=== PATIENT | female | born 1980 | race Caucasian/White ===

== ENCOUNTER 2017-10-02 20:27 | Inpatient (IN) | payer OTHER ==
[~2017-10-02] VITALS: Ht 157.5 cm; Wt 101.2 kg
[~2017-10-02 20:27] MED LIST: AMITRIPTYLINE H25 M2 PO; AMOXIL 875 MG875 M1 PO; FLOMAX0.4 MG PO; HYDROCODONE-AP1 EAC6 PO; LEVSIN0.125 MG SUBLING; OMEPRAZOLE40 MG PO; PHENTERMINE HCL15 MG PO; PREDNISONE 20 M20 MG PO; PROTONIX40 M1 PO; REGLAN 10 MG TA10 MG PO; SINGULAIR 10 MG10 M1 PO; TOPAMAX 100 MG100 MG PO; TORADOL 10 MG T10 MG PO; TRAMADOL 50 MG50 MG PO; TYLENOL EXTRA500 MG PO; TYLENOL PM EX-1 EACH PO
[2017-10-02 20:39] VITALS: BP 174/117
[2017-10-02] MEDS ORDERED: CLARITIN10 MG (20:47)
[2017-10-02] MEDS ORDERED: LOVASTATIN 20 M20 MG (20:47)
[2017-10-02 21:01] LABS: HEMATOCRIT 41.1 % (37.0-47.0); HEMOGLOBIN 13.9 gm/dL (12.0-15.0); MCH 29.1 pg (26.0-34.0); MCHC 33.8 g/dL (28.0-37.0); MCV 86.1 fL (80.0-100.0); RBC 4.77 mil/uL (4.20-5.00); RDW-CV 13.9 % (10.5-14.5); WBC 11.2 thou/uL (4.0-11.0)
[2017-10-02 21:09] LABS: CALCIUM 9.6 mg/dL (8.5-10.1); CREATININE 0.9 mg/dL (0.6-1.3); POTASSIUM 3.2 mmol/L (3.5-5.1)
[2017-10-02 21:14] LABS: ALBUMIN 4.1 g/dL (3.4-5.0); MAGNESIUM 1.9 mg/dL (1.8-2.4); PHOSPHORUS* 4.2 mg/dL (2.5-4.9); TOTAL BILIRUBIN 0.3 mg/dL (<0.1-1.0); TOTAL PROTEIN 7.8 g/dL (6.4-8.2)
[2017-10-02 21:21] LABS: ACETAMINOPHEN 3 ug/mL (10-30); ALCOHOL < 10 mg/dL (<10); SALICYLATE < 2.8 mg/dL (2.8-20.0)
[2017-10-02 21:22] LABS: PCO2 38.5 mmHg (35.0-45.0); PO2 70.5 mmHg (75.0-100.0); pH 7.447 (7.340-7.450)
[2017-10-02 22:30] LABS: AMP/METHAMP Negative (Negative); BARBITURATES Negative (Negative); BENZODIAZEPINES Negative (Negative); COCAINE Negative (Negative); METHADONE Negative (Negative); OPIATES Negative (Negative); PCP Negative (Negative); THC Negative (Negative)
[2017-10-02 22:55] VITALS: BP 113/86
[2017-10-02 23:08] VITALS: BP 141/90
[2017-10-03] VITALS (17 sets, daily range): BP systolic 98–139; BP diastolic 66–104
[2017-10-03 04:39] LABS: CALCIUM 8.8 mg/dL (8.5-10.1); CREATININE 0.8 mg/dL (0.6-1.3)
--- NOTE | 2017-10-03 06:57 | NUR ---
PT IS ABLE TO COMMUNICATE HER NEEDS TO STAFF WITH SOME DIFFICULTY; SHE IS DROWSY AND HER SPEECH IS SOMEWHAT SLURRED. PT IS IN ICU FOR TRICYCLIC MEDICATION OVERDOSE.
[2017-10-03 10:11] LABS: BE -1.5 mmol/L (-2 to +3); HCO3 23.2 mmol/L (22.0-26.0); pH 7.392 (7.340-7.450)
[2017-10-03 10:18] LABS: PO2 134.6 mmHg (75.0-100.0)
--- NOTE | 2017-10-03 10:45 | NUR ---
SPOKE WITH AT BEDSIDE. PT ADMITTED LAST EVENING WITH ACCIDENTAL OVERDOSE OF AMITRYPTYLLINE. SAID PT USUALLY FILLS A PILL BOX WITH HER WEEK'S WORTH OF MEDS BUT THE LAST COUPLE OF DAYS SHE HASN'T DONE THAT. HE SAID SHE HAD HER PILL BOTTLES IN FRONT OF HER AND WAS PUTTING THE MEDS SHE NEEDED TO TAKE INTO AN EMPTY BOTTLE. HE SAID SHE WAS WATCHING TV AND NOT PAYING ATTENTION, SHE PICKD UP THE BOTTLE WITH THE AMITRYPTYLINE IN IT AN DUMPED IT IN HER MOUTH. HE SAID HER USUAL WAY OF TAKING ALL HER MEDS IS TO GET A MOUTHFUL OF WATER AND THEN DUMP ALL HER PILLS IN HER MOUTH AT THE SAME TIME. SOON SHE SWALLOWED, SHE REALIZED THERE WERE TOO MANY PILLS IN HER MOUTH AND REALIZED WHAT SHE HAD DONE. SAID THAT PT USED TO SEE DR. UP IN [place], HE LEFT THE OFFICE BUT PT WILL CONTINUE TO SEE SOMEONE IN THAT OFFICE. SAID ALL OF HER MEDS ARE ORDERED BY HER PCP. PT SLEEPING SOUNDLY SO UNABLE TO TALK TO HER. DISCUSSED ROLE OF CASE MGT WITH , WILL CONTINUE TO FOLLOW.
--- NOTE | 2017-10-03 13:22 | NUR ---
Nutrition: Consult received for "other." Pt admitted with accidental OD. BMI is 40.8. H/o HLD, OBE, migraines. Per ICU rounds, pt is very out of it. ?seizure activity last NOC. However, her diet has now advanced to CLD for lunch. Albumin 4.1. Consider Mild risk at this time. No nutrition interventions needed at this time.
[2017-10-03 15:58] LABS: BE -0.6 mmol/L (-2 to +3); HCO3 23.4 mmol/L (22.0-26.0); PCO2 36.8 mmHg (35.0-45.0); PO2 82.3 mmHg (75.0-100.0); pH 7.422 (7.340-7.450)
--- NOTE | 2017-10-03 15:59 | EKG ---
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1980 Requested By: Debby Gentile Order Number: [id number] MD: Luis Alberto Neil Measurements Intervals [place] Rate: 94 P: 49 [place]: 177 QRS: -14 QRSD: 118 T: -22 QT: 408 QTc: 511 Interpretive Statements Sinus rhythm LVH with IVCD and secondary repol abnrm Prolonged QT interval No previous ECG available for comparison Electronically Signed On 10-03-2017 15:59:31 CDT by Luis Alberto Neil [email or web address] <ELECTRONICALLY SIGNED> By: Luis Alberto Neil MD, [facility] 10/03/17 1559 56 56 Luis Alberto Neil MD, [facility] /EPI
--- NOTE | 2017-10-03 16:00 | EKG ---
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1980 Requested By: Sharad Ellington Order Number: [id number] Reading MD: Luis Alberto Neil Measurements Intervals [place] Rate: 98 P: 87 [place]: 289 QRS: -13 QRSD: 124 T: -29 QT: 398 QTc: 509 Interpretive Statements Sinus rhythm Prolonged [place] interval Consider left atrial enlargement Left ventricular hypertrophy Nonspecific T abnormalities, diffuse leads Borderline prolonged QT interval No previous ECG available for comparison Electronically Signed On 10-03-2017 16:00:42 CDT by Luis Alberto Neil [email or web address] <ELECTRONICALLY SIGNED> By: Luis Alberto Neil MD, [facility] 10/03/17 1600 [id number] [id number] Luis Alberto Neil MD, [facility] /EPI
--- NOTE | 2017-10-03 16:01 | EKG ---
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1980 Requested By: Sharad Ellington Order Number: [id number] Reading : Luis Alberto Neil Measurements Intervals [place] Rate: 90 P: 59 [place]: 186 QRS: -11 QRSD: 127 T: -25 QT: 425 QTc: 520 Interpretive Statements Sinus rhythm Left ventricular hypertrophy Nonspecific T abnormalities, anterior leads Prolonged QT interval No previous ECG available for comparison Electronically Signed On 10-03-2017 16:01:43 CDT by Luis Alberto Neil [email or web address] <ELECTRONICALLY SIGNED> By: Luis Alberto Neil MD, [facility] 10/03/17 1601 1456 1456 Luis Alberto Neil MD, [facility] /EPI
--- NOTE | 2017-10-03 18:37 | NUR ---
PT LETHARGIC THROUGHOUT THE DAY BUT AROUSABLE WITH PAINFUL STIMULI. PT IS NOW A&O X4 AND VERY TEARFUL. PT REPORTS TO NURSING STAFF THAT SHE DID NOT INTENTIONALLY TAKE THE PILLS. TELE PSYCH NOT DONE DUE TO PATIENT BEING LETHARGIC THROUGHOUT THE DAY, WILL GET DONE RIGHT AWAY IN THE MORNING. EKG WITHIN NORMAL LIMITS.VSS. ASSESSMENT CHARTED. FAMILY VISITING WITH PATIENT NOW.
[2017-10-04] VITALS: BP 128/92
[2017-10-04 01:03] LABS: CALCIUM 8.7 mg/dL (8.5-10.1); CREATININE 0.8 mg/dL (0.6-1.3); POTASSIUM 3.3 mmol/L (3.5-5.1)
[2017-10-04 02:00] VITALS: BP 131/94
[2017-10-04 04:18] VITALS: BP 127/92
--- NOTE | 2017-10-04 04:45 | NUR ---
ASSUMED CARE OF PT AT 1900 PT DROWSY BUT AROUSABLE AND ORIENTED X4. PT VS AND ASSESSMENT STABLE NSR ON THE MONITOR. PT DENIED ANY COMPLAINTS AND SLEPT THROUGH THE NIGHT. WILL CONTINUE PLAN OF CARE.
[2017-10-04 04:55] LABS: HEMATOCRIT 36.1 % (37.0-47.0); HEMOGLOBIN 12.5 gm/dL (12.0-15.0); MCH 29.6 pg (26.0-34.0); MCHC 34.6 g/dL (28.0-37.0); MCV 85.7 fL (80.0-100.0); MPV 8.9 fl. (7.2-11.1); RBC 4.21 mil/uL (4.20-5.00); RDW-CV 14.1 % (10.5-14.5); WBC 8.3 thou/uL (4.0-11.0)
[2017-10-04 05:05] LABS: CALCIUM 8.9 mg/dL (8.5-10.1); CREATININE 0.8 mg/dL (0.6-1.3); POTASSIUM 3.8 mmol/L (3.5-5.1)
[2017-10-04 06:00] VITALS: BP 133/86
[2017-10-04 08:00] VITALS: BP 135/89
[2017-10-04 10:16] VITALS: BP 120/88
--- NOTE | 2017-10-04 11:01 | NUR ---
RECEIVED REPORT FROM ELENA PANDA. ASSESSMENT CHARTED. AFEBRILE.PT GOING TO BE D/C'D TODAY. DISCHARGE PAPERWORK GIVEN. ALL QUESTIONS ANSWERED. DANE AND RAHUL PaulinoC'Jose. PT IS AWAITING RIDE.
--- NOTE | 2017-10-04 12:30 | NUR ---
PT LEFT UNIT AT 1230 WITH MOTHER AND BELONGINGS.
== END 2017-10-04 12:30 | disposition home or self-care (01) | DRG 917 ==
LOC: M.ERS 20:27 → M.TBA-ER 21:52 → M.ICU 21:52
PROVIDERS: Internal Medicine; Personal Emergency Response Attendant; ADMIT Internal Medicine
DX: T43.011A Poisoning by tricyclic antidepressants, accidental (unintentional), initial encounter (principal); G92 Toxic encephalopathy; Z68.41 Body mass index [BMI] 40.0-44.9, adult; J45.909 Unspecified asthma, uncomplicated; G43.909 Migraine, unspecified, not intractable, without status migrainosus; F32.9 Major depressive disorder, single episode, unspecified; E66.01 Morbid (severe) obesity due to excess calories; E78.5 Hyperlipidemia, unspecified; Y92.89 Other specified places as the place of occurrence of the external cause; Z88.6 Allergy status to analgesic agent; Z88.8 Allergy status to other drugs, medicaments and biological substances; G44.89 Other headache syndrome; Z90.710 Acquired absence of both cervix and uterus

== ENCOUNTER 2018-08-10 08:22 | Emergency (ER) | payer OTHER ==
[~2018-08-10] VITALS: Ht 160 cm; Wt 98.0 kg
[~2018-08-10 08:22] MED LIST changes: +CLARITIN10 MG; +LOVASTATIN 20 M20 MG
[2018-08-10 10:06] VITALS: BP 164/95
== END 2018-08-10 10:06 | disposition home or self-care (01) ==
LOC: M.ERS 08:22
DX: G43.909 Migraine, unspecified, not intractable, without status migrainosus (principal); J45.909 Unspecified asthma, uncomplicated; F32.9 Major depressive disorder, single episode, unspecified; Z88.1 Allergy status to other antibiotic agents; Z90.710 Acquired absence of both cervix and uterus; Z88.6 Allergy status to analgesic agent; Z88.8 Allergy status to other drugs, medicaments and biological substances

== ENCOUNTER 2019-03-26 10:28 | Emergency (ER) | payer OTHER ==
[~2019-03-26] VITALS: Ht 160 cm; Wt 96.6 kg
[2019-03-26] MEDS ORDERED: LIPITOR10 MG PO (10:35)
[2019-03-26] MEDS ORDERED: APPLE CIDER VI300 MG PO (10:36)
[2019-03-26 11:00] LABS: ABSOLUTE BASOPHILS 0.1 thou/uL (0.0-0.2); ABSOLUTE EOSINOPHILS 0.1 thou/uL (0.0-0.7); ABSOLUTE LYMPHOCYTES 3.2 thou/uL (0.8-5.3); ABSOLUTE MONOCYTES 0.6 thou/uL (0.0-1.2); BASOPHILS 0.5 %; EOSINOPHILS 0.9 %; HEMATOCRIT 42.5 % (37.0-47.0); HEMOGLOBIN 15.1 gm/dL (12.0-15.0); LYMPHOCYTES 32.2 %; MCH 30.1 pg (26.0-34.0); MCHC 35.6 g/dL (28.0-37.0); MCV 84.5 fL (80.0-100.0); MONOCYTES 5.7 %; NUCLEATED RBCS 0 /100WBC; PLATELET COUNT* 357 thou/uL (150-400); POLYS 60.7 %; RBC 5.03 mil/uL (4.20-5.00); RDW-CV 13.8 % (10.5-14.5); WBC 9.8 thou/uL (4.0-11.0)
[2019-03-26 11:11] LABS: CALCIUM 10.3 mg/dL (8.5-10.1); CREATININE 0.8 mg/dL (0.6-1.3); POTASSIUM 3.7 mmol/L (3.5-5.1)
[2019-03-26 11:15] LABS: ALBUMIN 4.5 g/dL (3.4-5.0); TOTAL BILIRUBIN 0.5 mg/dL (<0.1-1.0); TOTAL PROTEIN 8.3 g/dL (6.4-8.2)
[2019-03-26 11:58] VITALS: BP 148/89
== END 2019-03-26 11:59 | disposition home or self-care (01) ==
LOC: M.ERS 10:28
PROVIDERS: Family Medicine
DX: G43.909 Migraine, unspecified, not intractable, without status migrainosus (principal); J45.909 Unspecified asthma, uncomplicated; F32.9 Major depressive disorder, single episode, unspecified; Z90.710 Acquired absence of both cervix and uterus; Z88.1 Allergy status to other antibiotic agents; Z88.8 Allergy status to other drugs, medicaments and biological substances; Z88.6 Allergy status to analgesic agent

== ENCOUNTER 2020-01-29 08:46 | Emergency (ER) | payer OTHER ==
[~2020-01-29] VITALS: Ht 160 cm; Wt 90.7 kg
[~2020-01-29 08:46] MED LIST changes: +APPLE CIDER VI300 MG PO; +LIPITOR10 MG PO
[2020-01-29 09:54] VITALS: BP 139/73
== END 2020-01-29 09:55 | disposition home or self-care (01) ==
LOC: M.ERS 08:46
DX: J45.909 Unspecified asthma, uncomplicated (principal); G43.909 Migraine, unspecified, not intractable, without status migrainosus; Z88.1 Allergy status to other antibiotic agents; Z88.8 Allergy status to other drugs, medicaments and biological substances; Z88.6 Allergy status to analgesic agent; Z90.710 Acquired absence of both cervix and uterus

== ENCOUNTER 2021-03-16 09:25 | Emergency (ER) | payer OTHER ==
[~2021-03-16] VITALS: Ht 157.5 cm; Wt 99.8 kg
[2021-03-16] MEDS ORDERED: HYDROCODON-ACE1 EAC7 PO (11:32)
[2021-03-16] MEDS ORDERED: CRUTCHES MISCELL ×2 (11:46→11:47)
[2021-03-16 12:00] VITALS: BP 134/72
== END 2021-03-16 12:01 | disposition home or self-care (01) ==
LOC: M.ERS 09:25
DX: S92.102A Unspecified fracture of left talus, initial encounter for closed fracture (principal); J45.909 Unspecified asthma, uncomplicated; G43.909 Migraine, unspecified, not intractable, without status migrainosus; F32.9 Major depressive disorder, single episode, unspecified; Z79.899 Other long term (current) drug therapy; Z91.048 Other nonmedicinal substance allergy status; Z88.1 Allergy status to other antibiotic agents; Z88.8 Allergy status to other drugs, medicaments and biological substances; W10.8XXA Fall (on) (from) other stairs and steps, initial encounter; Y93.89 Activity, other specified; Y92.89 Other specified places as the place of occurrence of the external cause; Y99.8 Other external cause status